=== PATIENT | female | born 1945 | race Caucasian/White ===

== ENCOUNTER 2022-03-14 12:04 | Emergency (ER) | payer BC ==
[~2022-03-14] VITALS: Ht 162.6 cm; Wt 93.0 kg
--- NOTE | 2022-03-14 12:10 | NUR ---
RICKI C/O FEVER/COUGH/SOB, JUST ARRIVED TODAY FROM A CRUISE FROM [facility] [place]. AMBULATORY, PLACED IN BED, AAOX4, DYSNEIC RR- 22 SATURATING AT 92%RA.
--- NOTE | 2022-03-14 13:04 | NUR ---
BLOOD DRAWN AND SWAB FOR COVID19 SENT TO LAB
[2022-03-14 13:19] LABS: BASOPHILS # (AUTO) 0.1 K/uL (0.0-0.2); BASOPHILS % (AUTO) 0.5 % (0.0-2.0); EOSINOPHILS % (AUTO) 0.6 % (0.0-6.0); HEMATOCRIT 39 % (33-45); HEMOGLOBIN 12.9 g/dL (11.5-14.8); LYMPHOCYTES # (AUTO) 1.6 K/uL (0.8-4.8); LYMPHOCYTES % (AUTO) 9.9 % (20.0-44.0); MEAN CORPUSCULAR HGB CONC 33 g/dl (31.0-36.0); MEAN CORPUSCULAR VOLUME 88 fL (82-100); MONOCYTES # (AUTO) 2.6 K/uL (0.1-1.30); MONOCYTES % (AUTO) 15.8 % (2.0-12.0); NEUTROPHILS # (AUTO) 12.1 K/uL (1.8-8.9); NEUTROPHILS % (AUTO) 73.2 % (43.0-81.0); PLATELET COUNT (AUTO) 378 K/uL (150-450); WHITE BLOOD COUNT (AUTO) 16.6 K/uL (4.3-11.0)
[2022-03-14 13:55] LABS: ALANINE AMINOTRANSFERASE 41 U/L (12-78); ALBUMIN 3.2 g/dL (3.4-5.0); ALKALINE PHOSPHATASE 119 U/L (46-116); ASPARTATE AMINOTRANSFERASE 90 U/L (15-37); BILIRUBIN,DIRECT 0.2 mg/dL (0.0-0.2); BILIRUBIN,TOTAL 0.8 mg/dL (0.2-1.0); CALCIUM, SERUM 9.5 mg/dL (8.5-10.1); CARBON DIOXIDE 28 mmol/L (21-32); CHLORIDE 96 mmol/L (98-107); GLUCOSE 114 mg/dL (74-106); SODIUM SERUM 134 mmol/L (136-145); UREA NITROGEN, BLOOD 9 mg/dL (7-18)
[2022-03-14 14:15] LABS: POTASSIUM 2.8 mmol/L (3.5-5.1)
[2022-03-14] MEDS ORDERED: POTASSIUM CL. PREMIX PERIPHER. 50 ML IV SCH (14:30)
[2022-03-14] MEDS ORDERED: POTASSIUM CHLORIDE 20 MEQ TAB.PRT.SR PO ONE ×2 (14:30→15:30)
--- NOTE | 2022-03-14 15:00 | NUR ---
IV removed. Catheter intact and site benign. Pressure and 4x4 applied to site. No bleeding noted.Patient discharged to home in stable condition. Written and verbal after care instructions given. Patient verbalizes understanding of instruction.
[2022-03-14] MEDS ORDERED: POTA20TA83 PO (15:04)
[2022-03-14] MEDS ORDERED: AZIT250T13 PO (15:04)
[2022-03-14 19:06] VITALS: BP 135/70
[2022-03-14 22:49] LABS: BAND % (MANUAL) 4 % (0.0-5.0); LYMPHOCYTES % (MANUAL) 12 % (16-48); MONOCYTES % (MANUAL) 9 % (0-11.0); NEUTROPHILS % (MANUAL) 75 (42-76)
== END 2022-03-14 15:00 | disposition home or self-care (01) ==
LOC: ER 12:20
DX: B34.9 Viral infection, unspecified (principal); J40 Bronchitis, not specified as acute or chronic; E87.6 Hypokalemia; I11.0 Hypertensive heart disease with heart failure; I50.9 Heart failure, unspecified; Z20.822 Contact with and (suspected) exposure to COVID-19
CPT/HCPCS: 99285; 71045; 87426; 93005; 85025; 80048; 80076; 36415; 84484; 83880; 85007; C9803